=== PATIENT | female | born 1965 | race Caucasian/White ===

== ENCOUNTER 2016-10-10 07:26 | Emergency (ER) | payer SELFPAY ==
[2016-10-10 07:36] VITALS: BP 184/98
--- NOTE | 2016-10-10 08:01 | ED ---
Throat Pain/Nasal Congestion - HPI Summary HPI Summary: Pt presents with 6 days of head pressure, post nasal drip, left ear pain, sore throat and cough. Cough productive of yellow sputum. Pt reports tactile fever, no chills. No CP. No rash. No PEREZ. Pt has been using flonase and zyrtec as well as multiple natural remedies (honey, salt water) for throat. 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 Pt's medications reviewed at this visit - History of Current Complaint Chief Complaint: UCGeneralIllness Time Seen by Provider: 10/10/16 07:40 Hx Obtained From: Patient Onset/Duration: Lasting Days Severity: Moderate Associated Signs And Symptoms: Positive: Sinus Discomfort, Nasal Discharge Cough: Productive - yellow - Epiglottits Risk Factors Epiglottis Risk Factors: Negative - Allergies/Home Medications Allergies/Adverse Reactions: Allergies Allergy/AdvReac Type Severity Reaction Status Date / Time Penicillins Allergy Rash Verified 10/10/16 07:32 Home Medications: Home Medications Djjivzbhpcfrj-[id number] [Mucinex Fast-Max Cold & S 10-650-400 mg/20Ml] 10/10/16 [History] PMH/Surg Hx/FS Hx/Imm Hx Previously Healthy: Yes Endocrine/Hematology History: Denies: Hx Diabetes, Hx Thyroid Disease Cardiovascular History: Denies: Hx Hypertension Respiratory History: Denies: Hx Asthma, Hx Chronic Obstructive Pulmonary Disease (COPD) GI History: Denies: Hx Ulcer EENT History: Reports: Other - allergies - Surgical History Surgery Procedure, Year, and Place: umbilical hernia, tympanostomy tubes Infectious Disease History: No Infectious Disease History: Denies: Hx Clostridium Difficile, Hx Hepatitis, Hx Human Immunodeficiency Virus (HIV), Hx of Known/Suspected MRSA, Hx Shingles, Hx Tuberculosis, Hx Known/ Suspected VRE, Hx Known/Suspected VRSA, History Other Infectious Disease, Traveled Outside the [place] in Last 30 Days - Family History Known Family History: Positive: Diabetes - Social History Occupation: Employed Full-time Alcohol Use: Occasionally Substance Use Type: Reports: None Smoking Status (MU): Never Smoked Tobacco Review of Systems Positive: Fever, Fatigue Eyes: Negative Positive: Sore Throat, Nasal Discharge Cardiovascular: Negative Positive: Cough Gastrointestinal: Negative Genitourinary: Negative Musculoskeletal: Negative Skin: Negative Neurological: Negative Psychological: Normal All Other Systems Reviewed And Are Negative: Yes Physical Exam Triage Information Reviewed: Yes Vital Signs On Initial Exam: Initial Vitals Temp Pulse Resp BP Pulse Ox 98.1 F 85 18 184/98 100 10/10/16 07:33 10/10/16 07:33 10/10/16 07:33 10/10/16 07:33 10/10/16 07:33 Vital Signs Reviewed: Yes Appearance: Positive: Well-Appearing Skin: Positive: Warm, Skin Color Reflects Adequate Perfusion, Dry Head/Face: Positive: Normal Head/Face Inspection Eyes: Positive: Normal, EOMI, SPEEDY. Negative: Conjunctiva Clear ENT: Positive: Nasal congestion, TM red - left TM erythema, fluid, no retraction , Other - laryngitis, turbinates inflammed and boggy + PND No exudate, no erythema uvula midline + PND thick yellow Pt with discomfort max sinuses b/l. Negative: TMs normal Neck: Positive: Supple, Nontender, No Lymphadenopathy Respiratory/Lung Sounds: Positive: Clear to Auscultation, Breath Sounds Present , Other - coarse cough Cardiovascular: Positive: Normal, RRR. Negative: Murmur Abdomen Description: Positive: Nontender, No Organomegaly, Soft Bowel Sounds: Positive: Present Musculoskeletal: Positive: Normal, Strength/ROM Intact Neurological: Positive: Normal, Sensory/Motor Intact, Alert, Oriented to Person Place, Time Psychiatric: Positive: Normal AVPU Assessment: Alert - Elli Coma Scale Best Eye Response: 4 - Spontaneous Best Motor Response: 6 - Obeys Commands Best Verbal Response: 5 - Oriented Diagnostics - Vital Signs Vital Signs Temp Pulse Resp BP Pulse Ox 10/10/16 07:33 98.1 F 85 18 184/98 100 - Laboratory Lab Results: Lab Results 10/10/16 Range/Units 07:40 Group A Strep Rapid Negative (Negative) Lab Statement: Any lab studies that have been ordered have been reviewed, and results considered in the medical decision making process. EENT Course/Dx - Course Assessment/Plan: Pt presents with URI sx, productive cough x 6 days. pt reports fevers, little relief with symptomatic tx. Pt with elevated BP - did not recommend psuedoephederine - recommend f/u with pcp regarding BP. rapid strep neg. will start z pack. diflucan prn vaginal yeast sec to abx. secretion hygeine. robitussin with codeine - codeine precautions discussed. PCP f/u. return precautions - Diagnoses Provider Diagnoses: Sinusitis Discharge - Discharge Plan Condition: Stable Disposition: HOME Prescriptions: Azithromycin TAB* [Zithromax TAB (Z-CHIDI) 250 mg #6 tabs] 2 tab PO .TODAY, THEN 1 DAILY #1 chidi Fluconazole [Diflucan 150 MG (NF)] 150 mg PO ONCE #1 tab guaiFENesin/CODIEN 100MG-10MG* [Robitussin AC 100Mg-10Mg*] 5 ml PO Q6H PRN #100 udc MDD 20 PRN Reason: Cough Patient Education Materials: Sinusitis (ED) Referrals: Louise Dexter MD [Primary Care Provider] - Additional Instructions: - Okay to alternate ibuprofen (Advil, Motrin) and Tylenol every 3 hours for pain. Take with food. Do NOT take for more than 4-5 days - Okay to gargle and spit every 4 hours as needed for pain - continue to use flonase and zyrtec as previously - take antibiotics as prescribed until gone - Okay to take Robitussin or prescription robitussin with codeine every 6 hours for cough. Codeine is a narcotic - do not drive, operate machinery or drink alcohol while taking codeine - Stay well hydrated - frequent sips of cold fluids will be soothing to your throat (popsicles, jello, ice cream, ice water). Avoid excess caffeine until your symptoms have resolved. -Throat infections are spread by oral secretions - do not share eating or drinking utensils until you symptoms are resolved. Clean items that may get your secretions such as cell phones, ipads, computer mouse, television remotes after you have been on antibiotics for 2 days, change your pillowcase and your toothbrush - Contact your doctor to arrange a follow-up appointment as needed You have been given a prescription for Diflucan - okay to use for antibiotic induced yeast infection
== END 2016-10-10 08:26 | disposition home or self-care (01) ==
LOC: UCEAST 07:26
DX: J32.9 Chronic sinusitis, unspecified (principal); Z88.0 Allergy status to penicillin
CPT/HCPCS: 87651; 99212; G0463

== ENCOUNTER 2017-08-26 16:35 | Emergency (ER) | payer SELFPAY ==
[2017-08-26 16:46] VITALS: BP 189/108
[2017-08-26] MEDS ORDERED: Albuterol 2.5 MG/3 ML NEB.SOL* (0.083%) INH ONE (17:00)
--- NOTE | 2017-08-26 17:03 | UC ---
Respiratory Complaint HPI - HPI Summary HPI Summary: Patient has seasonal allergies, was moving and dusting her attic and now she has "pain" in the center of her chest, but only with deep breaths, no fever, mild cough. some PND, denies palpitations. - History of Current Complaint Chief Complaint: UCRespiratory Stated Complaint: RESP COMPLAINT Time Seen by Provider: 08/26/17 16:49 Hx Obtained From: Patient Hx Last Menstrual Period: menapause- spotting thu and thursday ?: No Onset/Duration: Sudden Onset, Lasting Days - 2 Timing: Constant Severity Initially: Mild Pain Intensity: 4 Character: Cough: Nonproductive Aggravating Factors: Allergens, Deep Breaths Alleviating Factors: Nothing Associated Signs And Symptoms: Positive: Wheezing, Nasal Congestion - Allergies/Home Medications Allergies/Adverse Reactions: Allergies Allergy/AdvReac Type Severity Reaction Status Date / Time Penicillins Allergy Intermediate Rash Verified 08/26/17 16:46 Home Medications: Home Medications Cetirizine* [ZyrTEC 10 MG TAB*] 10 mg PO DAILY 08/26/17 [History Confirmed 08/26] PMH/Surg Hx/FS Hx/Imm Hx Previously Healthy: Yes - Surgical History Surgical History: Yes Surgery Procedure, Year, and Place: umbilical hernia, tympanostomy tubes - Family History Known Family History: Positive: Diabetes - Social History Alcohol Use: Occasionally Substance Use Type: None Smoking Status (MU): Former Smoker When Did the Patient Quit Smoking/Using Tobacco: 18 years Review of Systems Constitutional: Negative Skin: Negative Eyes: Negative ENT: Negative Respiratory: Cough Cardiovascular: Negative Gastrointestinal: Negative Genitourinary: Negative Motor: Negative Neurovascular: Negative Musculoskeletal: Negative Neurological: Negative, Headache Is Patient Immunocompromised?: No All Other Systems Reviewed And Are Negative: Yes Physical Exam Triage Information Reviewed: No Appearance: Well-Appearing, Well-Nourished, Pain Distress Vital Signs: Initial Vital Signs Temp 98.9 F 08/26/17 16:40 Pulse 108 08/26/17 16:40 Resp 20 08/26/17 16:40 BP 189/108 08/26/17 16:40 Pulse Ox 100 08/26/17 16:40 Vital Signs Reviewed: Yes Eye Exam: Normal ENT: Positive: Pharynx normal, Nasal congestion, TMs normal Dental Exam: Normal Neck exam: Normal Neck: Positive: Supple, Nontender Respiratory: Positive: Chest non-tender, No respiratory distress, No accessory muscle use, Wheezing, Inspiration Cardiovascular Exam: Normal Cardiovascular: Positive: RRR, No Murmur, Pulses Normal Abdominal Exam: Normal Abdomen Description: Positive: Nontender, No Organomegaly, Soft Bowel Sounds: Positive: Present Musculoskeletal Exam: Normal Neurological Exam: Normal Psychological Exam: Normal Skin Exam: Normal UC Diagnostic Evaluation - Laboratory O2 Sat by Pulse Oximetry: 100 Re-Evaluation - Re-Evaluation First Eval Change: Improved - respiration improved after neb, bp retaken 152/78 Respiratory Course/Dx - Course Course Of Treatment: hx obtained, exam performed ,meds reviewed, albuterol treatment given. - Differential Dx/Diagnosis Differential Diagnosis/HQI/PQRI: Asthma, Bronchitis, Laryngitis Provider Diagnoses: bronchitis Discharge - Sign-Out/Discharge Documenting (check all that apply): Patient Departure - Discharge Plan Condition: Stable Disposition: HOME Prescriptions: Albuterol HFA INHALER* [Ventolin HFA Inhaler*] 1 - 2 puff INH Q4H PRN #1 mdi PRN Reason: Sob/Wheezing predniSONE [Prednisone 20 MG TAB] 40 mg PO DAILY #10 tablet Patient Education Materials: Acute Bronchitis (ED) Referrals: Louise Dexter MD [Primary Care Provider] - Additional Instructions: 1. take the medication as prescribed. 2. If not improving in the next 2 days start eh azithromycin. 3. Follow up if symtpoms become severe. - Billing Disposition and Condition Condition: STABLE Disposition: Home
== END 2017-08-26 17:46 | disposition home or self-care (01) ==
LOC: UCEAST 16:35
DX: J40 Bronchitis, not specified as acute or chronic (principal); Z88.0 Allergy status to penicillin; Z87.891 Personal history of nicotine dependence
CPT/HCPCS: 99212; G0463

== ENCOUNTER 2017-09-10 15:27 | Emergency (ER) | payer SELFPAY ==
--- NOTE | 2017-09-10 16:05 | UC ---
Throat Pain/Nasal Zack HPI - HPI Summary HPI Summary: This is rossy Roberts documenting for attending Raine Gregorio M.D. Patient is a 52 y/o female who presents to c/o a sore throat. She states last night she began to have a 4/10 in severity sore throat and noticed white spots on her tonsils. Patient also c/o intermittent headaches and mildly sore lymph nodes. 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 She was treated here 2 weeks ago for acute bronchitis. Patient was on Prednisone , Albuterol, and a Z-Kyle for the bronchitis, which completely resolved a few days ago. She denies any PMHx of HTN, and states that her BP was high 2 weeks ago upon initial exam, but was normal when taken manually. FHx DM, HTN, and stroke. - History of Current Complaint Chief Complaint: UCRespiratory Stated Complaint: SORE THROAT Time Seen by Provider: 09/10/17 15:48 Hx Obtained From: Patient Hx Last Menstrual Period: one year ago Onset/Duration: Gradual Onset, Lasting Days - 1 - Last night, Still Present Severity: Moderate Pain Intensity: 4 Pain Scale Used: 0-10 Numeric Cough: None Associated Signs & Symptoms: Positive: Other - Intermittent headaches, sore lymph nodes, white spots on tonsils - Allergies/Home Medications Allergies/Adverse Reactions: Allergies Allergy/AdvReac Type Severity Reaction Status Date / Time Penicillins Allergy Intermediate Rash Verified 09/10/17 15:35 PMH/Surg Hx/FS Hx/Imm Hx Cardiovascular History: Other Other Cardiovascular History: NEGATIVE: HTN Respiratory History: Bronchitis - Surgical History Surgical History: Yes Surgery Procedure, Year, and Place: umbilical hernia, tympanostomy tubes - Family History Known Family History: Positive: Hypertension, Diabetes, Other - Stroke, NEGATIVE : cardiac disease - Social History 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 Alcohol Use: Occasionally Substance Use Type: None Smoking Status (MU): Former Smoker When Did the Patient Quit Smoking/Using Tobacco: 18 years Review of Systems ENT: Sore Throat - white spots on tonsils, Other - Sore lymph nodes Respiratory: Other - NEGATIVE: cough Neurological: Headache - Intermittent All Other Systems Reviewed And Are Negative: Yes Physical Exam Triage Information Reviewed: Yes Appearance: Well-Appearing, No Pain Distress, Obese Vital Signs: Initial Vital Signs Temp 98.7 F 09/10/17 15:30 Pulse 95 09/10/17 15:30 Resp 18 09/10/17 15:30 BP 193/101 09/10/17 15:30 Pulse Ox 100 09/10/17 15:30 Eyes: Positive: Conjunctiva Clear ENT: Positive: Pharyngeal erythema, TM red - bilateral mild erythema and retraction., Tonsillar swelling - right > left with scant exudate left tonsil Neck: Positive: Supple, Nontender, No Lymphadenopathy Respiratory: Positive: Lungs clear, Normal breath sounds Cardiovascular: Positive: RRR, No Murmur Diagnostics - Laboratory Diagnostic Studies Completed/Ordered: Rapid strep negative. Throat Pain/Nasal Course/Dx - Course Course Of Treatment: symptomatic treatment of viral illness. - Differential Dx/Diagnosis Differential Diagnosis/HQI/PQRI: Laryngitis, Pharyngitis, Tonsillitis, URI Provider Diagnoses: viral pharyngitis Discharge - Sign-Out/Discharge Documenting (check all that apply): Patient Departure - Discharge Plan Condition: Stable Disposition: HOME Patient Education Materials: Pharyngitis (ED) Referrals: Louise Dexter MD [Primary Care Provider] - Additional Instructions: Rapid strep is negative. Continue symptomatic treatment with ibuprofen, salt water gargling. Please ensure that you check your blood pressure in follow up with Dr. Dexter within 1-2 weeks. - Billing Disposition and Condition Condition: STABLE Disposition: Home
[2017-09-10 16:44] VITALS: BP 150/86
== END 2017-09-10 16:45 | disposition home or self-care (01) ==
LOC: UCEAST 15:27
DX: J02.9 Acute pharyngitis, unspecified (principal); Z88.0 Allergy status to penicillin; Z87.891 Personal history of nicotine dependence
CPT/HCPCS: 87651; 99211; G0463

== ENCOUNTER 2017-11-16 07:12 | Emergency (ER) | payer SELFPAY ==
[2017-11-16] MEDS ORDERED: Aspirin 81 mg CHEW TAB* 81 MG TAB.CHEW PO ONE (07:37)
--- NOTE | 2017-11-16 07:40 | UC ---
Cardiac HPI - HPI Summary HPI Summary: 52-year-old woman comes in to the clinic today complaining of chest pain. This started last evening. It's in her upper chest and radiates to her right jaw. It's worse with inspiration. No fevers no chills no cough. Denies being nauseous earlier short of breath. Laying down makes the pain worse. No upper abdominal pain. No calf tenderness or swelling. The pain is moderate. She has borderline hypertension but no diagnosis of high cholesterol or diabetes. There is a family history of cardiac disease. - History of Current Complaint Chief Complaint: UCGeneralIllness Stated Complaint: COUGH Time Seen by Provider: 11/16/17 07:25 Hx Last Menstrual Period: one year ago Pain Intensity: 6 - Allergy/Home Medications Allergies/Adverse Reactions: Allergies Allergy/AdvReac Type Severity Reaction Status Date / Time Penicillins Allergy Intermediate Rash Verified 11/16/17 07:24 Home Medications: Home Medications Pseudoephedrine HCl [Sudafed 12 Hour] 1 tab PO BID 11/16/17 [History Confirmed 11/16/17] PMH/Surg Hx/FS Hx/Imm Hx - Additional Past Medical History Additional PMH: Borderline hypertension - Surgical History Surgical History: Yes Surgery Procedure, Year, and Place: umbilical hernia, tympanostomy tubes - Family History Known Family History: Positive: Cardiac Disease, Hypertension, Diabetes, Other - Stroke, NEGATIVE: cardiac disease - Social History Alcohol Use: Occasionally Substance Use Type: None Smoking Status (MU): Former Smoker When Did the Patient Quit Smoking/Using Tobacco: 18 years - Immunization History Most Recent Tetanus Shot: UNK Review of Systems Constitutional: Negative Skin: Negative Eyes: Negative ENT: Negative Respiratory: Negative Cardiovascular: Chest Pain Gastrointestinal: Negative Genitourinary: Negative Motor: Negative Neurovascular: Negative Musculoskeletal: Negative Psychological: Negative Is Patient Immunocompromised?: No All Other Systems Reviewed And Are Negative: Yes Physical Exam Triage Information Reviewed: Yes Appearance: Well-Appearing, No Pain Distress, Well-Nourished Vital Signs: Initial Vital Signs Temp 98.4 F 11/16/17 07:16 Pulse 102 11/16/17 07:16 Resp 22 11/16/17 07:16 BP 0/0 11/16/17 07:16 Pulse Ox 96 11/16/17 07:16 Vital Signs Reviewed: Yes Eye Exam: Normal ENT Exam: Normal ENT: Positive: Normal ENT inspection Neck exam: Normal Neck: Positive: Supple Respiratory Exam: Normal Respiratory: Positive: Lungs clear, Normal breath sounds, No respiratory distress Cardiovascular Exam: Normal Cardiovascular: Positive: RRR Abdominal Exam: Normal Abdomen Description: Positive: Nontender Bowel Sounds: Positive: Present Musculoskeletal Exam: Normal Musculoskeletal: Positive: Strength Intact, ROM Intact, No Edema, Other: - CALVES NT TO PALPATION Psychological Exam: Normal Skin Exam: Normal Skin: Positive: rashes Diagnostics - EKG EKG Comments: AT 07:35 Cardiac Rate: NL - 94BPM Cardiac Rhythm: Sinus: Normal Ectopy: None ST Segment: Non-Specific - Assessment/Plan Course Of Treatment: I did not see any ischemic changes on the EKG. I recommended the patient get further evaluation right away in the emergency department. Patient declined ambulance transport she will go with her mother by POV. - Clinical Impression Provider Diagnoses: CHEST PAIN Discharge - Sign-Out/Discharge Documenting (check all that apply): Patient Departure All imaging exams completed and their final reports reviewed: No Studies - Discharge Plan Condition: Stable Disposition: HOME-RECOMMEND TO ED Patient Education Materials: Chest Pain (ED) Referrals: Louise Dexter MD [Primary Care Provider] - Additional Instructions: GO DIRECTLY TO THE EMERGENCY DEPARTMENT FOR FURTHER EVALUATION OF YOUR CHEST PAIN. - Billing Disposition and Condition Condition: STABLE Disposition: Home-Recommend to ED
[2017-11-16 07:50] VITALS: BP 170/102
== END 2017-11-16 08:12 | disposition home health service (06) ==
LOC: UCEAST 07:12
DX: R07.89 Other chest pain (principal); Z88.0 Allergy status to penicillin; Z82.49 Family history of ischemic heart disease and other diseases of the circulatory system; Z83.3 Family history of diabetes mellitus; Z82.3 Family history of stroke; Z87.891 Personal history of nicotine dependence
CPT/HCPCS: 93005; 99212; A9270-GY; G0463

== ENCOUNTER 2017-11-16 08:28 | Emergency (ER) | payer SELFPAY ==
[2017-11-16] MEDS ORDERED: Aspirin 81 mg CHEW TAB* 81 MG TAB.CHEW PO ONE (08:50)
--- NOTE | 2017-11-16 09:02 | ED ---
HPI Chest Pain - HPI Summary HPI Summary: A 52 y/o F presents to ED with c/o CP with inhalation onset last night. The pain is described as bruising" and rated a 5/10. She has had this pain previously, and was seen at [facility] in August, and treated for bronchial inflammation. Associated sx: mild cough. Denies fever, SOB. Patient took Aspirin GRADUATE RN. PMHx: borderline HTN. Daily medications discussed. [facility]: June 2016. Former smoker. - History of Current Complaint Chief Complaint: EDChestPainROMI Time Seen by Provider: 11/16/17 08:47 Hx Obtained From: Patient Hx Last Menstrual Period: one year ago Onset/Duration: Started Hours Ago, Still Present Initial Severity: Moderate Current Severity: Moderate Pain Intensity: 6 Pain Scale Used: 0-10 Numeric Character: Other: - "bruising" Aggravating Factor(s): Deep Breaths - inhalation Associated Signs and Symptoms: Positive: Cough - mild. Negative: Chest Pain, Shortness of Breath - Allergy/Home Medications Allergies/Adverse Reactions: Allergies Allergy/AdvReac Type Severity Reaction Status Date / Time Penicillins Allergy Intermediate Rash Verified 11/16/17 07:24 Home Medications: Home Medications Soy Isofl/Blk Coh/Gr Tea/Yerba [[employer]] 1 odt PO DAILY 11/16/17 [History Confirmed 11/16/17] PMH/Surg Hx/FS Hx/Imm Hx Previously Healthy: Yes Endocrine/Hematology History: Denies: Hx Diabetes, Hx Thyroid Disease Cardiovascular History: Denies: Hx Hypertension Respiratory History: Denies: Hx Asthma, Hx Chronic Obstructive Pulmonary Disease (COPD) GI History: Denies: Hx Ulcer - Surgical History Surgery Procedure, Year, and Place: umbilical hernia, tympanostomy tubes Infectious Disease History: No Infectious Disease History: Denies: Hx Clostridium Difficile, Hx Hepatitis, Hx Human Immunodeficiency Virus (HIV), Hx of Known/Suspected MRSA, Hx Shingles, Hx Tuberculosis, Hx Known/ Suspected VRE, Hx Known/Suspected VRSA, History Other Infectious Disease, Traveled Outside the [place] in Last 30 Days - Family History Known Family History: Positive: Cardiac Disease, Hypertension, Diabetes - Social History 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 Negative: Shortness Of Breath All Other Systems Reviewed And Are Negative: Yes Physical Exam - Summary Physical Exam Summary: VITAL SIGNS: Reviewed. GENERAL: Patient is a well-developed and nourished (MALE OR FEMALE) who is lying comfortable in the stretcher. Patient is not in any acute respiratory distress. HEAD AND FACE: No signs of trauma. No ecchymosis, hematomas or skull depressions. No sinus tenderness. EYES: PERRLA, EOMI x 2, No injected conjunctiva, no nystagmus. EARS: Hearing grossly intact. Ear canals and tympanic membranes are within normal limits. MOUTH: Oropharynx within normal limits. NECK: Supple, trachea is midline, no adenopathy, no JVD, no carotid bruit, no c- spine tenderness, neck with full ROM. CHEST: Symmetric. Reproducible upper chest pain with palpation. LUNGS: Clear to auscultation bilaterally. No wheezing or crackles. CVS: Regular rate and rhythm, S1 and S2 present, no murmurs or gallops appreciated. ABDOMEN: Soft, non-tender. No signs of distention. No rebound, no guarding, and no masses palpated. Bowel sounds are normal. EXTREMITIES: FROM in all major joints, no edema, no cyanosis or clubbing. NEURO: Alert and oriented x 3. No acute neurological deficits. Speech is normal and follows commands. SKIN: Dry and warm Triage Information Reviewed: Yes Vital Signs On Initial Exam: Initial Vitals Temp Pulse Resp BP Pulse Ox 98.6 F 108 24 124/89 97 11/16/17 08:29 11/16/17 08:29 11/16/17 08:29 11/16/17 08:29 11/16/17 08:29 Vital Signs Reviewed: Yes Diagnostics - Vital Signs Vital Signs Temp Pulse Resp BP Pulse Ox 11/16/17 08:29 98.6 F 108 24 124/89 97 - Laboratory Result Diagrams: 11/16/17 09:03 11/16/17 09:03 Lab Statement: Any lab studies that have been ordered have been reviewed, and results considered in the medical decision making process. - Radiology CXR Xray Interpretation: No Acute Changes - IMPRESSION: No active cardiopulmonary dz is noted. ED provider has reviewed this report. Radiology Interpretation Completed By: Radiologist - EKG 0846 Cardiac Rate: NL - 90bpm EKG Rhythm: Sinus Rhythm ST Segment: Normal - no ST elevation EKG Interpretation: Q-wave in III. nml QTC and NC interval. Re-Evaluation - Re-Evaluation 1 Re-Evaluation Time: 12:34 Change: Improved Comment: Discussing results with pt and plans to dispo. Chest Pain Course/Dx - Course Assessment/Plan: A 52 y/o F presents to ED with c/o CP with inhalation onset last night. The pain is described as bruising" and rated a 5/10. She has had this pain previously, and was seen at [facility] in August, and treated for bronchial inflammation. Associated sx: mild cough. Denies fever, SOB. Patient took Aspirin GRADUATE RN. PMHx: borderline HTN. Daily medications discussed. [facility]: June 2016. Former smoker. Blood test results without any significant abnormality except for WBCs of 11.7, glucose 120, and troponin of 0.00. Chest x-ray impression: No acute pulmonary disease. EKG is a normal sinus rhythm with no ST elevations. Patient was given Toradol for the pain. Second troponin 4 hours apart is 0.00. Patient is a have any shortness of breath, hypoxia or tachycardia therefore believe that the patient has low suspicion for PE. The patient's blood pressure is elevated therefore the patient was given 1 dose of labetalol. Right now the symptoms have resolved the blood pressure is controlled however the patient does have any history of hypertension. Therefore the patient prefers not to get any hypertension medications until she sees her primary care physician. I discussed all the findings and test results with the patient. Patient was instructed to return to the emergency room immediately if any of the symptoms return or worsens. Plan of care was discussed with the patient and understands and agrees. All questions were answered at patient satisfaction. There were no further complaints or concerns. Lung exam before discharge: CTA B/L. Good air exchange. No wheezing or crackles heard. CVS: S1 and S2 present. No murmurs appreciated. Patient is alert and oriented x 3. Patient is hemodynamically stable. Patient will be discharged home with follow up PCP in the next 2-3 days. Heart score is equal to 2. - Chest Pain Differential Diagnosis/HQI/PQRI: Acute MN, ACS, Angina, CHF, Chest Wall, GI Disease, Lower Respiratory Infection, Pulmonary Edema - Diagnoses Provider Diagnoses: Chest pain, Elevated BP without diagnosis of hypertension - Critical Care Time Critical Care Time: 75-104 min Discharge - Sign-Out/Discharge Documenting (check all that apply): Patient Departure - Discharge Plan Condition: Stable Disposition: HOME Patient Education Materials: Chest Pain (ED), Hypertension (ED) Referrals: Louise Dexter MD [Primary Care Provider] - 3 Days Additional Instructions: See your primary care provider in 2-3 days. Please return to the Emergency Department if you experience new or worsening symptoms. - Billing Disposition and Condition Condition: STABLE Disposition: Home - Attestation Statements Document Initiated by Scribe: Yes Documenting Scribe: Lisa Miner Provider For Whom Nancy is Documenting (Include Credential): Dr. Lance Hyde MD Scribe Attestation: Lisa Neal, scribed for Dr. Lance Hyde MD on 11/17/17 at 0816. Scribe Documentation Reviewed: Yes Provider Attestation: The documentation as recorded by the Lisa blair accurately reflects the service I personally performed and the decisions made by me, Dr. Lance Hyde MD
[2017-11-16 09:16] LABS: ABS Basophils 0.1 10^3/ul (0-0.2); ABS Eosinophils 0 10^3/ul (0-0.6); ABS Monocytes 0.8 10^3/ul (0-0.8); ABS Neutrophils 9.8 10^3/ul (1.5-7.7); ABS Nucleated RBC 0.1 10^3/ul; Eosinophil % 0.3 % (0-6); Hematocrit 39 % (35-47); Hemoglobin 13.3 g/dl (12.0-16.0); Lymphocyte % 8.5 % (25-47); Mean Corpuscular HGB Conc 34 g/dl (31-36); Mean Corpuscular Hemoglobin 29 pg (27-31); Mean Corpuscular Volume 86 fL (80-97); Mean Platelet Volume 8.7 um3 (7.4-10.4); Nucleated Red Blood Cells % 0.5; Platelet Count 216 10^3/ul (150-450); Red Blood Count 4.52 10^6/ul (4.00-5.40); Red Cell Distribution Width 15 % (10.5-15); White Blood Count 11.7 10^3/ul (3.5-10.8)
[2017-11-16 09:34] LABS: INR 1.03 (0.77-1.02)
[2017-11-16 09:36] LABS: EGFR Non-African American 86.8 (>60)
[2017-11-16] MEDS ORDERED: Labetalol IV* 5 MG/ML 20 ML VIAL IV PUSH ONE (09:52)
--- NOTE | 2017-11-16 10:06 | RAD ---
HISTORY: CP COMPARISONS: None VIEWS: 1: frontal AP view of the chest at 9:20 AM FINDINGS: LINES AND TUBES: None. CARDIOMEDIASTINAL SILHOUETTE: The cardiomediastinal silhouette is normal for portable technique. PLEURA: The costophrenic angles are sharp. No pleural abnormalities are noted. LUNG PARENCHYMA: The lungs are clear. ABDOMEN: The upper abdomen is clear. There is no subphrenic gas. BONES AND SOFT TISSUES: No bone or soft tissue abnormalities are noted. IMPRESSION: NO ACTIVE CARDIOPULMONARY DISEASE.
[2017-11-16] MEDS ORDERED: Ketorolac INJ* 30 MG/ML 1 ML VIAL IV PUSH ONE (12:33)
[2017-11-16 13:37] VITALS: BP 139/81
== END 2017-11-16 13:38 | disposition home or self-care (01) ==
LOC: ED 08:28
DX: R07.9 Chest pain, unspecified (principal); R03.0 Elevated blood-pressure reading, without diagnosis of hypertension; Z87.891 Personal history of nicotine dependence; Z88.0 Allergy status to penicillin
CPT/HCPCS: 36415; 71045; 80053; 82550; 82553; 83605; 83735; 83880; 84443; 84484; 85025; 85610; 85730; 93005; 96374; 96375; 99283; J1885